=== PATIENT | female | born 1990 | race American Indian/Alaskan Native ===

== ENCOUNTER 2018-09-08 15:08 | Outpatient (CLI) | payer MEDICAID ==
[2018-09-08 15:28] VITALS: BP 107/62
[2018-09-08 15:45] LABS: Bilirubin,Urine NEG (Negative); Blood,Urine NEG (Negative); Color,Urine Yellow (Yellow); Mucus,Urine FEW /HPF; Protein,Urine <15 mg/dL mg/dL (Negative); Urobilinogen,Urine < 2.0 mg/dL (<2.0)
== END 2018-09-08 16:23 | disposition home or self-care (01) ==
LOC: TRG 15:08
PROVIDERS: ATTEND Obstetrics & Gynecology
DX: O47.03 False labor before 37 completed weeks of gestation, third trimester (principal); Z3A.37 37 weeks gestation of pregnancy
CPT/HCPCS: 59025; 81001

== ENCOUNTER 2018-09-12 15:27 | Inpatient (IN) | payer MEDICAID ==
[2018-09-12] MEDS ORDERED: LACTATED RINGERS 1,000 ML ONE (23:30)
[2018-09-12] MEDS ORDERED: LACTATED RINGERS 1,000 ML IV SCH (23:45)
[2018-09-13 00:05] LABS: Hematocrit 37.1 % (30.3-42.9); Hemoglobin 12.2 gm/dl (10.1-14.3); Mean Corpuscular HGB Conc 33 % (30-34); Mean Corpuscular Volume 86 fl (79-97); Platelet Count 269 K/mm3 (140-440); Red Blood Count 4.31 M/mm3 (3.65-5.03); Red Cell Distribution Width 18.6 % (13.2-15.2)
[2018-09-13] MEDS: ZOFRAN IV PRN ×3 (00:07→12:19)
[2018-09-13] MEDS: SUBLIMAZE IV PRN ×2 (00:13→04:41)
--- NOTE | 2018-09-13 06:27 | History and Physical Report ---
History of Present Illness Date of examination: 09/13/18 Date of admission: 09/12/18 23:03 Chief complaint: Contractions History of present illness: 28yo G 2 P 1 0 0 1 at 38 weeks 2 days here with c/o contractions that started yesterday. She reports +FMs, but denies VB or LOF. She is a [facility] patient who initiated care at 6 weeks gestation. Her course is complicated by morbid obesity, anemia and succenturiate placenta. Labs: B+, Antibody Screen neg, Pap Smear normal, RI, VDRL NR, HBsAg neg, HIV neg, MSAFP neg, Diabetes Screen 148, 3-hr GTT 75/162/126/109, GC/CT/Trich neg, GBS neg. Past History Past Medical History: other (vitamin D deficiency) Past Surgical History: other (wisdom teeth) AUDIT TECH History: other (condyloma) Family/Genetic History: cancer (breast, brain) Social history: single, lives with family, full code. denies: smoking, alcohol abuse, prescription drug abuse, IV drug use - Obstetrical History Expected Date of Delivery: 09/25/18 Actual Gestation: 38 Week(s) 2 Day(s) : 2 Para: 1 Hx # Term Pregnancies: 1 Number of Pregnancies: 0 Spontaneous Abortions: 0 Induced : 0 Number of Living Children: 1 #1 Infant Gender: Female year: (10/13/2012) Birthweight: 2.665 kg Method of Delivery: Vaginal Gestational age at delivery: 40 Complications: none Medications and Allergies Allergies Allergy/AdvReac Type Severity Reaction Status Date / Time No Known Allergies Allergy Verified 09/08/18 15:11 Active Meds: Active Medications Fentanyl (Sublimaze) 100 mcg IV Q2HR PRN PRN Reason: Labor Pain Last Admin: 09/13/18 04:41 Dose: 100 mcg Documented by: Lactated Ringer's (Lactated Ringers) 1,000 mls @ 125 mls/hr IV DIRECT JOSIAS Last Admin: 09/13/18 00:07 Dose: 125 mls/hr Documented by: Ondansetron HCl (Zofran) 4 mg IV Q8H PRN PRN Reason: Nausea And Vomiting Last Admin: 09/13/18 00:07 Dose: 4 mg Documented by: Review of Systems All systems: negative - Vital Signs Vital signs: Vital Signs Pulse Pulse Ox 70 100 09/12/18 15:36 09/12/18 15:36 Temp Pulse Resp BP Pulse Ox 98.1 F 64 18 107/68 97 09/12/18 17:30 09/13/18 06:11 09/12/18 17:30 09/13/18 06:11 09/13/18 01:29 - Physical Exam Abdomen: Positive: normal appearance Genitourinary (Female): Positive: normal external genitalia, normal perenium Vulva: both: normal Vagina: Positive: normal moisture Uterus: Positive: normal size, normal contour - Obstetrical FHR: auscultation normal, category 1 FHR comments: baseline 130, moderate variability, 15x15 accels, no decels Cervical Dilatation: 4 Cervical Effacement Percentage: 70 station: -1 Uterine Contraction Frequency (min): 4-7 Uterine Contraction Pattern: Regular Results Result Diagrams: 09/12/18 18:00 Abnormal lab results 09/12/18 Range/Units 18:00 RDW 18.6 H (13.2-15.2) % All other labs normal. Assessment and Plan - Patient Problems (1) 38 weeks gestation of Current Visit: Yes Status: Acute (2) Active labor at term Current Visit: Yes Status: Acute Plan to address problem: Admit to L&D with routine labor orders Start oxytocin for labor augmentation Anticipate vaginal delivery (3) Morbid obesity with BMI of 40.0-44.9, adult Current Visit: Yes Status: Acute
[2018-09-13] MEDS ORDERED: XYLOCAINE 2% INFILTRATI ONE (06:52)
[2018-09-13] MEDS ORDERED: BRETHINE SUB-Q PRN (06:52)
[2018-09-13] MEDS ORDERED: BRETHINE IVP PRN (06:52)
[2018-09-13] MEDS ORDERED: STADOL IV PRN (06:52)
[2018-09-13] MEDS ORDERED: MINERAL OIL PO PRN (06:52)
[2018-09-13] MEDS ORDERED: PITOCin/NS 30 UNIT/500ML 30 UNITS/500 ML BAG IV SCH (07:00)
[2018-09-13] MEDS ORDERED: LACTATED RINGERS 1,000 ML IV SCH (07:00)
[2018-09-13] MEDS ORDERED: PITOCin/NS 20 UNIT/1000ML DRIP 20 UNITS/1,000 ML BAG IV SCH (07:00)
--- NOTE | 2018-09-13 10:30 | Progress Note ---
Assessment and Plan - Patient Problems (1) 38 weeks gestation of Current Visit: Yes Status: Acute (2) Active labor at term Current Visit: Yes Status: Acute Plan to address problem: Continue routine labor orders Continue Pitocin augmentation as tolerated Epidural as desired Anticipate (3) Placenta succenturiata Current Visit: Yes Status: Acute Subjective - Subjective Date of service: 09/13/18 Principal diagnosis: 38 week gestation; labor augmentation Interval history: See admission H & P Patient reports: movement normal, contractions, no new complaints (Request epidural placement), no vaginal bleeding Objective - Vital Signs Vital Signs: Vital Signs - 12hr 09/12/18 09/12/18 09/12/18 23:17 23:22 23:27 Pulse Rate 80 79 76 Blood Pressure O2 Sat by Pulse 100 100 100 Oximetry 09/12/18 09/13/18 09/13/18 23:32 00:09 00:14 Pulse Rate 116 H 70 73 Blood Pressure O2 Sat by Pulse 100 99 97 Oximetry 09/13/18 09/13/18 09/13/18 00:15 00:19 00:21 Pulse Rate 81 75 77 Blood Pressure O2 Sat by Pulse 92 95 94 Oximetry 09/13/18 09/13/18 09/13/18 00:24 00:26 00:29 Pulse Rate 69 67 75 Blood Pressure O2 Sat by Pulse 95 94 95 Oximetry 09/13/18 09/13/18 09/13/18 00:34 00:39 00:44 Pulse Rate 59 L 55 L 65 Blood Pressure O2 Sat by Pulse 96 98 95 Oximetry 09/13/18 09/13/18 09/13/18 00:45 00:49 00:54 Pulse Rate 77 67 65 Blood Pressure O2 Sat by Pulse 94 95 96 Oximetry 09/13/18 09/13/18 09/13/18 00:59 01:02 01:04 Pulse Rate 63 77 59 L Blood Pressure O2 Sat by Pulse 96 94 97 Oximetry 09/13/18 09/13/18 09/13/18 01:09 01:10 01:14 Pulse Rate 56 L 69 68 Blood Pressure 101/61 O2 Sat by Pulse 95 94 96 Oximetry 09/13/18 09/13/18 09/13/18 01:19 01:24 01:29 Pulse Rate 79 72 61 Blood Pressure O2 Sat by Pulse 96 100 97 Oximetry 09/13/18 09/13/18 09/13/18 02:09 03:09 04:10 Pulse Rate 75 71 84 Blood Pressure 117/70 115/65 117/62 O2 Sat by Pulse Oximetry 09/13/18 09/13/18 09/13/18 05:10 06:11 07:10 Pulse Rate 69 64 67 Blood Pressure 105/62 107/68 108/71 O2 Sat by Pulse Oximetry 09/13/18 09/13/18 09/13/18 09:10 09:16 09:21 Pulse Rate 76 98 H 79 Blood Pressure 128/76 O2 Sat by Pulse 99 99 Oximetry 09/13/18 09/13/18 09/13/18 09:26 09:31 09:36 Pulse Rate 74 67 70 Blood Pressure O2 Sat by Pulse 100 100 98 Oximetry - Exam Breasts: deferred Cardiovascular: Regular rate Lungs: Normal air movement Abdomen: Present: other (gravid) Uterus: Present: other (S=D) FHR: category 1 Uterine Contraction Monitor Mode: External Cervical Dilatation: 5 (Pitocin @ 4mu/ml) Cervical Effacement Percentage: 70 station: -1 Uterine Contraction Pattern: Irregular Uterine Tone Measurement Phase: Resting Uterine Contraction Intensity: Moderate Extremities: normal Deep Tendon Reflex Grade: Normal +2 - Labs Labs: Abnormal Labs 09/12/18 18:00 RDW 18.6 H Laboratory Results - last 24 hr 09/12/18 09/12/18 18:00 18:00 WBC 9.6 RBC 4.31 Hgb 12.2 Hct 37.1 MCV 86 MCH 28 MCHC 33 RDW 18.6 H Plt Count 269 Blood Type B POSITIVE Antibody Screen Negative
[2018-09-13] MEDS ORDERED: NARCAN 2 MG/2 ML IV PRN (11:10)
--- NOTE | 2018-09-13 11:13 | Anesthesia Consultation ---
Anesthesia Consult and Med Hx Date of service: 09/13/18 - Airway Anesthetic Teeth Evaluation: Good ROM Head & Neck: Adequate Mental/Hyoid Distance: Adequate Mallampati Class: Class II Intubation Access Assessment: Probably Good - Pulmonary Exam CTA: Yes - Cardiac Exam Cardiac Exam: RRR - Pre-Operative Health Status ASA Pre-Surgery Classification: ASA2 Proposed Anesthetic Plan: Epidural - Pulmonary Hx Smoking: No Hx Asthma: No Hx Respiratory Symptoms: No SOB: No COPD: No Hx Pneumonia: No Hx Sleep Apnea: No - Cardiovascular System Hx Hypertension: No Hx Coronary Artery Disease: No Hx Heart Attack/AMI: No Hx Angina: No Hx Percutaneous Transluminal Coronary Angioplasty (PTCA): No Hx Cardia Arrhythmia: No Hx Pacemaker: No Hx Internal Defibrillator: No Hx Valvular Heart Disease: No Hx Heart Murmur: No Hx Peripheral Vascular Disease: No - Central Nervous System Hx Neuromuscular Disorder: No Hx Seizures: No CVA: No Hx Back Pain: No Hx Psychiatric Problems: No - Gastrointestinal Hx Ulcer: No Hx Gastroesophageal Reflux Disease: No - Endocrine Hx Renal Disease: No Hx End Stage Renal Disease: No Hx Cirrhosis: No Hx Liver Disease: No Hx Insulin Dependent Diabetes: No Hx Non-Insulin Dependent Diabetes: No Hx Thyroid Disease: No Hx Hypothyroidism: No Hx Hyperthyroidism: No - Hematic Hx Anemia: No Hx Sickle Cell Disease: No - Other Systems Hx Alcohol Use: No Hx Substance Use: No Hx Cancer: No Hx Obesity: Yes (BMI 44.6)
--- NOTE | 2018-09-13 11:41 | Ultrasound Report ---
ULTRASOUND OB LIMITED HISTORY: Evaluate presentation. TECHNIQUE: Transabdominal ultrasound images. FINDINGS: A single intrauterine is identified in cephalic position. heart rate measur es 127 bpm. IMPRESSION: Cephalic presentation. Signer Name: John Weldon Jr, MD Signed: 09/13/2018 11:36 AM Workstation Name: [id number]
[2018-09-13] MEDS ORDERED: fentaNYL-BUPIV 2 MCG/ML-0.125% 200 MCG/100 ML BAG EPIDURAL SCH (12:00)
--- NOTE | 2018-09-13 14:51 | Progress Note ---
Assessment and Plan - Patient Problems (1) 38 weeks gestation of Current Visit: Yes Status: Acute (2) Active labor at term Current Visit: Yes Status: Acute Plan to address problem: Continue routine labor orders Continue Pitocin augmentation as tolerated Anticipate (3) Placenta succenturiata Current Visit: Yes Status: Acute Subjective - Subjective Date of service: 09/13/18 Principal diagnosis: 38 week gestation; labor augmentation Interval history: See admission H & P Patient reports: new complaints (Reports some pressure, but comfortable for the most part), loss of fluid (meconium stained), movement normal, contractions, no vaginal bleeding Objective - Vital Signs Vital Signs: Vital Signs - 12hr 09/13/18 09/13/18 09/13/18 03:09 04:10 05:10 Temperature Pulse Rate 71 84 69 Respiratory Rate Blood Pressure 115/65 117/62 105/62 O2 Sat by Pulse Oximetry 09/13/18 09/13/18 09/13/18 06:11 07:10 09:10 Temperature Pulse Rate 64 67 76 Respiratory Rate Blood Pressure 107/68 108/71 128/76 O2 Sat by Pulse Oximetry 09/13/18 09/13/18 09/13/18 09:16 09:21 09:26 Temperature Pulse Rate 98 H 79 74 Respiratory Rate Blood Pressure O2 Sat by Pulse 99 99 100 Oximetry 09/13/18 09/13/18 09/13/18 09:31 09:36 10:34 Temperature Pulse Rate 67 70 Respiratory Rate Blood Pressure O2 Sat by Pulse 100 98 100 Oximetry 09/13/18 09/13/18 09/13/18 10:35 10:39 10:42 Temperature Pulse Rate 92 H 98 H 117 H Respiratory Rate Blood Pressure 131/74 O2 Sat by Pulse 100 54 L Oximetry 09/13/18 09/13/18 09/13/18 10:45 10:54 10:55 Temperature Pulse Rate 101 H 100 H 87 Respiratory Rate Blood Pressure 135/71 O2 Sat by Pulse 100 60 L Oximetry 09/13/18 09/13/18 09/13/18 10:57 11:01 11:03 Temperature Pulse Rate 96 H 81 71 Respiratory Rate Blood Pressure 168/86 110/62 O2 Sat by Pulse 96 Oximetry 09/13/18 09/13/18 09/13/18 11:06 11:08 11:11 Temperature Pulse Rate 72 92 H 78 Respiratory Rate Blood Pressure 107/59 O2 Sat by Pulse 98 93 98 Oximetry 09/13/18 09/13/18 09/13/18 11:13 11:14 11:16 Temperature Pulse Rate 85 78 76 Respiratory Rate Blood Pressure 105/54 O2 Sat by Pulse 89 100 Oximetry 09/13/18 09/13/18 09/13/18 11:18 11:21 11:26 Temperature Pulse Rate 78 75 75 Respiratory Rate Blood Pressure 103/54 O2 Sat by Pulse 100 100 Oximetry 09/13/18 09/13/18 09/13/18 11:31 11:33 11:34 Temperature Pulse Rate 75 71 73 Respiratory Rate Blood Pressure 98/55 O2 Sat by Pulse 99 93 Oximetry 09/13/18 09/13/18 09/13/18 11:36 11:41 11:46 Temperature Pulse Rate 72 75 83 Respiratory Rate Blood Pressure O2 Sat by Pulse 100 98 100 Oximetry 09/13/18 09/13/18 09/13/18 11:48 11:50 11:51 Temperature 98.1 F Pulse Rate 80 91 H Respiratory 16 Rate Blood Pressure 102/60 O2 Sat by Pulse 97 Oximetry 09/13/18 09/13/18 09/13/18 11:52 11:56 12:01 Temperature Pulse Rate 90 103 H 101 H Respiratory Rate Blood Pressure O2 Sat by Pulse 94 99 100 Oximetry 09/13/18 09/13/18 09/13/18 12:06 12:14 12:19 Temperature Pulse Rate 118 H 85 75 Respiratory Rate Blood Pressure 128/59 109/60 O2 Sat by Pulse 100 Oximetry 09/13/18 09/13/18 09/13/18 12:33 12:49 13:04 Temperature Pulse Rate 68 71 64 Respiratory Rate Blood Pressure 115/55 116/48 99/52 O2 Sat by Pulse Oximetry 09/13/18 09/13/18 09/13/18 13:20 13:49 14:03 Temperature Pulse Rate 109 H 107 H 96 H Respiratory Rate Blood Pressure 134/58 113/74 112/58 O2 Sat by Pulse Oximetry 09/13/18 09/13/18 09/13/18 14:19 14:23 14:28 Temperature Pulse Rate 117 H 117 H 104 H Respiratory Rate Blood Pressure 111/71 O2 Sat by Pulse 100 100 Oximetry 09/13/18 09/13/18 09/13/18 14:33 14:38 14:43 Temperature Pulse Rate 85 104 H 87 Respiratory Rate Blood Pressure 115/70 O2 Sat by Pulse 99 99 100 Oximetry - Exam Breasts: deferred Cardiovascular: Regular rate Lungs: Normal air movement FHR: category 1 (with early decels noted) Uterine Contraction Monitor Mode: External Cervical Dilatation: 9 (Pitocin @ 8mu/ml) Cervical Effacement Percentage: 90 station: +1 Uterine Contraction Frequency (min): 2-3 Uterine Contraction Pattern: Regular Uterine Tone Measurement Phase: Resting Uterine Contraction Intensity: Strong/Firm - Labs Labs: Abnormal Labs 09/12/18 18:00 RDW 18.6 H Laboratory Results - last 24 hr 09/12/18 09/12/18 09/12/18 18:00 18:00 18:00 WBC 9.6 RBC 4.31 Hgb 12.2 Hct 37.1 MCV 86 MCH 28 MCHC 33 RDW 18.6 H Plt Count 269 RPR Nonreactive Blood Type B POSITIVE Antibody Screen Negative
[2018-09-13] MEDS ORDERED: MARCAINE 0.25% INFILTRATI ONE (15:55)
[2018-09-13] MEDS ORDERED: XYLOCAINE MPF 2% ONE (16:09)
[2018-09-13] MEDS ORDERED: PERCOCET 5/325 ONE (20:20)
[2018-09-13] MEDS ORDERED: PERCOCET 5/325 PO PRN ×2 (20:23→21:02)
[2018-09-13] MEDS ORDERED: PHENERGAN PO PRN (21:02)
[2018-09-13] MEDS ORDERED: BENADRYL PO PRN (21:02)
[2018-09-13] MEDS ORDERED: LANSINOH TP PRN (21:02)
[2018-09-13] MEDS ORDERED: TUCKS PAD TP PRN (21:02)
[2018-09-13] MEDS ORDERED: ZOFRAN IV PRN (21:02)
[2018-09-13] MEDS ORDERED: DULCOLAX PR PRN (21:02)
[2018-09-13] MEDS ORDERED: MILK OF MAGNESIA PO PRN (21:02)
--- NOTE | 2018-09-13 21:18 | Procedure Note ---
OB Delivery Note - Delivery Date of Delivery: 09/13/18 (1999) Surgeon: LOU MCCAULEY (CNM) Estimated blood loss: other (250cc) - Vaginal Delivery presentation: vertex Delivery position: OA (direct with compound hand) Intrapartum events: meconium Delivery induction: none Delivery augmentation: pitocin Delivery monitor: external FHT, external uterine Route of delivery: Delivery placenta: spontaneous (2003) Delivery cord: 3 umbilical vessels Episiotomy: none Delivery laceration: none Anesthesia: epidural Delivery comments: of viable, meconium stained male , not crying with poor tone. Cord immediately double clamped and cut and handed over to awaiting NICU team whom is at bedside for delivery. Placenta spontaneously delivered, nino, disposed per hospital policy. Fundus firm @ U, hemostasis maintained. Perineum intact. Baby assessed and cleared by NICU team and returned to mother. Mother and baby safe, stable and bonding well. - Infant A at 1 minute: 7 at 5 minutes: 8 Gender: Male (Weight: 3225 gms (7 lbs 2 ozs), 18.5 inches)
[2018-09-13] MEDS ORDERED: SODIUM CHLORIDE FLUSH SYRINGE 10 ML IV NR (22:00)
[2018-09-13] MEDS: IBUPROFEN PO SCH (23:52)
[2018-09-14] MEDS: IBUPROFEN PO SCH ×4 (05:49→21:45)
[2018-09-14 09:35] LABS: Hemoglobin 9.9 gm/dl (10.1-14.3)
[2018-09-14 09:44] LABS: Hematocrit 31.1 % (30.3-42.9)
[2018-09-14] MEDS: PRENATAL VITAMIN PO SCH (10:01)
--- NOTE | 2018-09-14 10:10 | Progress Note ---
Assessment and Plan A: PP Day #1 Asymptomatic Anemia Left Leg Numb P: Follow Routine Orders FeSO4 325mg PO BID Subjective - Subjective Date of service: 09/14/18 Principal diagnosis: 38 week gestation; labor augmentation Patient reports: appetite normal, voiding normally, other (left leg still numb from epidural; using wheelchair) [place]: doing well, bottle feeding Objective - Vital Signs Latest vital signs: Vital Signs Temp Pulse Resp BP BP Pulse Ox 09/14/18 05:49 20 09/14/18 04:00 98.4 F 64 16 99/72 09/14/18 00:30 98.6 F 69 19 104/72 09/13/18 23:52 18 09/13/18 22:55 98 F 77 18 113/63 100 09/13/18 21:51 20 09/13/18 21:33 88 109/64 09/13/18 21:27 93 H 85 09/13/18 21:22 93 H 100 09/13/18 21:18 98 H 111/69 09/13/18 21:17 98 H 100 09/13/18 21:12 96 H 100 09/13/18 21:07 100 H 100 09/13/18 21:03 104 H 111/67 09/13/18 21:02 104 H 100 09/13/18 20:57 109 H 100 09/13/18 20:54 38 L 89 09/13/18 20:52 109 H 100 09/13/18 20:48 108 H 114/57 09/13/18 20:47 111 H 100 09/13/18 20:42 115 H 100 09/13/18 20:37 114 H 100 09/13/18 20:35 94 H 20 117/56 09/13/18 20:33 110 H 117/56 94 09/13/18 20:32 115 H 96 09/13/18 20:27 118 H 95 09/13/18 20:22 116 H 100 09/13/18 20:20 113 H 20 119/57 09/13/18 20:18 113 H 119/57 09/13/18 20:17 120 H 100 09/13/18 20:12 124 H 100 09/13/18 20:07 122 H 118/70 100 09/13/18 20:05 98.0 F 122 H 20 121/65 09/13/18 20:03 122 H 121/65 07/30/19 19:58 45 L 82 L 09/13/18 19:53 54 L 56 L 09/13/18 19:48 64 59 L 09/13/18 19:43 77 78 L 09/13/18 17:48 108 H 125/66 09/13/18 17:41 99.0 F 09/13/18 17:34 93 H 120/90 09/13/18 17:18 88 118/74 09/13/18 17:03 79 94/52 09/13/18 16:49 96 H 102/54 09/13/18 16:33 94 H 93/54 09/13/18 16:18 101 H 99/50 09/13/18 16:04 117 H 101/59 09/13/18 16:00 97.9 F 16 09/13/18 15:48 115/65 09/13/18 15:33 113 H 114/66 09/13/18 15:18 144 H 117/69 09/13/18 15:03 109 H 121/74 100 09/13/18 14:58 104 H 100 09/13/18 14:53 97 H 99 09/13/18 14:48 103 H 117/72 99 09/13/18 14:43 87 100 09/13/18 14:38 104 H 99 09/13/18 14:33 85 115/70 99 09/13/18 14:28 104 H 100 09/13/18 14:23 117 H 100 09/13/18 14:19 117 H 111/71 09/13/18 14:03 96 H 112/58 09/13/18 13:49 107 H 113/74 09/13/18 13:20 109 H 134/58 09/13/18 13:04 64 99/52 09/13/18 12:49 71 116/48 09/13/18 12:33 68 115/55 09/13/18 12:19 75 109/60 09/13/18 12:14 85 128/59 09/13/18 12:06 118 H 100 09/13/18 12:01 101 H 100 09/13/18 11:56 103 H 99 09/13/18 11:52 90 94 09/13/18 11:51 91 H 97 09/13/18 11:50 98.1 F 16 09/13/18 11:48 80 102/60 09/13/18 11:46 83 100 09/13/18 11:41 75 98 09/13/18 11:36 72 100 09/13/18 11:34 73 93 09/13/18 11:33 71 98/55 09/13/18 11:31 75 99 09/13/18 11:26 75 100 09/13/18 11:21 75 100 09/13/18 11:18 78 103/54 09/13/18 11:16 76 100 09/13/18 11:14 78 105/54 09/13/18 11:13 85 89 09/13/18 11:11 78 107/59 98 09/13/18 11:08 92 H 93 09/13/18 11:06 72 98 09/13/18 11:03 71 110/62 09/13/18 11:01 81 96 09/13/18 10:57 96 H 168/86 09/13/18 10:55 87 60 L 09/13/18 10:54 100 H 135/71 09/13/18 10:45 101 H 100 09/13/18 10:42 117 H 54 L 09/13/18 10:39 98 H 100 09/13/18 10:35 92 H 131/74 09/13/18 10:34 100 Intake and Output 09/13/18 09/14/18 09/14/18 22:59 06:59 14:59 Intake Total 240 Output Total 1150 1300 Balance -910 -1300 Intake: Oral 240 Output: Urine 1150 1300 Indwelling Catheter 1150 Void 1300 Other: Total, Intake Amount 240 Total, Output Amount 800 600 # Voids Void 1 Estimated Blood Loss 250 - Exam Breasts: Present: normal Cardiovascular: Present: Regular rate Lungs: Present: Clear to auscultation, Normal air movement Abdomen: Present: normal appearance, soft, normal bowel sounds Uterus: Present: normal, firm, fundal height below umbilicus Extremities: Present: other (left leg numb) - Labs Labs: Abnormal lab results 09/14/18 Range/Units 09:19 Hgb 9.9 L (10.1-14.3) gm/dl
[2018-09-14] MEDS: FEOSOL PO SCH ×2 (11:00→21:45)
--- NOTE | 2018-09-14 19:29 | Progress Note ---
Subjective Date of service: 09/14/18 Principal diagnosis: 38 week gestation; labor augmentation Interval history: Called to evaluate patient for left leg numbness/weakness s/p epidural for . Patient reports epidural worked on R side better than left side. Recalls left leg hurting/cramping while in stirrups and pushing. Patient denies signs and symptoms of infections (fever, chills, nausea). No fever noted on vital signs. No redness, drainage, erythema, or pain at site of epidural insertion. Neuro exam: straight leg raise 5/5 on R 4/5 on L. Lower leg push/pull 5/5 bilat. Foot dorsi/plantar flexion 5/5 on R 4/5 on L. Numbness only present on L medial foot. States that numbness has improved substantially since starting to ambulate with assistance. Discussed unlikely chance of infection, will do CT for epidural hematoma although also unlikely, and most likely cause is nerve compression from lithotomy position. This will continue to improve with use of the extremety. Patient verbalizes understanding and agreement with plan. Objective - Constitutional Vitals: Vital Signs - 12hr 09/14/18 09:59 Temperature 98.4 F Pulse Rate 74 Respiratory 16 Rate Blood Pressure 102/48 O2 Sat by Pulse 99 Oximetry - Labs CBC & Chem 7: 09/14/18 09:19 Labs: Abnormal lab results 09/14/18 Range/Units 09:19 Hgb 9.9 L (10.1-14.3) gm/dl
[2018-09-15] MEDS: IBUPROFEN PO SCH ×3 (03:46→18:25)
[2018-09-15] MEDS ORDERED: BOOSTRIX IM ONE (06:00)
[2018-09-15] MEDS: PRENATAL VITAMIN PO SCH (10:00)
[2018-09-15] MEDS: FEOSOL PO SCH (10:00)
--- NOTE | 2018-09-15 10:26 | Progress Note ---
Subjective Date of service: 09/15/18 Principal diagnosis: 38 week gestation; labor augmentation Interval history: Patient with continued improvement today. Numbness now only on ankle. Able to ambulate without assistance. Patient states she wishes to have CT scan before d/c, which is reasonable. Instructed patient on ambulating safely to prevent falls. Objective - Constitutional Vitals: Vital Signs - 12hr 09/14/18 09/15/18 09/15/18 22:45 00:32 03:46 Temperature 98.7 F Pulse Rate 71 Respiratory 18 18 18 Rate Blood Pressure 100/61 O2 Sat by Pulse 100 Oximetry 09/15/18 09/15/18 04:46 08:17 Temperature 98.9 F Pulse Rate 72 Respiratory 18 18 Rate Blood Pressure 106/64 O2 Sat by Pulse 97 Oximetry - Labs CBC & Chem 7: 09/14/18 09:19
--- NOTE | 2018-09-15 10:54 | Progress Note ---
Assessment and Plan A: PPD#2 s/p Asymptomatic Anemia Left lower Leg Numb (Pending scan; getting better) Eating drinking and ambulating without difficulty P: Follow Routine Orders FeSO4 325mg PO BID Awaiting scan Pt desires discharge home today pending scan Subjective - Subjective Date of service: 09/15/18 Principal diagnosis: PPD#2 s/p 09/13 Interval history: See H&P and delivery note Patient reports: appetite normal, voiding normally, pain well controlled, flatus, ambulating normally, no bowel movement [place]: doing well, bottle feeding Objective - Vital Signs Latest vital signs: Vital Signs Temp Pulse Resp BP Pulse Ox 09/15/18 08:17 98.9 F 72 18 106/64 97 09/15/18 04:46 18 09/15/18 03:46 18 09/15/18 00:32 98.7 F 71 18 100/61 100 09/14/18 22:45 18 09/14/18 21:45 18 09/14/18 16:25 98.6 F 79 16 115/66 98 09/14/18 13:04 98.5 F 87 16 90/44 99 Intake and Output 09/14/18 09/15/18 09/15/18 23:59 07:59 15:59 Intake Total 480 Balance 480 Intake: Intake, Free Water 480 Other: # Voids Void 1 - Exam Breasts: Present: normal Cardiovascular: Present: Regular rate, Normal S1, Normal S2, No murmurs Lungs: Present: Clear to auscultation, Normal air movement Abdomen: Present: normal appearance, soft, normal bowel sounds. Absent: distention Vulva: both: normal Uterus: Present: firm, fundal height at umbilicus Extremities: Present: other (Pt reports numbness to left lower leg and inability to dorsoflex left foot)
--- NOTE | 2018-09-15 16:56 | Cat Scan Report ---
CT lumbar without contrast. Clinical history: Left leg weakness FINDINGS: No previous exams available for comparison. There is mild curvature of the lumbar spine, co nvex toward the right. There is no significant spondylolisthesis at. The visualized vertebral bodies demonstrate appropriate height without CT evidence of acute compression or fracture. The disc bulge at L4-L5 appears greater on the left with slight flattening of the left ventral thecal sac at. There also appears be mild neural foraminal narrowing bilaterally. The remaining lumbar disc spaces appear fairly well-maintained without CT evidence of significant bony spinal stenosis. No foc al lytic lesions are appreciated. There are mild arthritic changes involving the visualized SI joints of bilaterally. All CT scans at this location are performed using the CT dose reduction for MyEdu by means of automated exposure control. IMPRESSION: There is no CT evidence of acute fracture involving the cervical spine. The disc bulge at L4-5 appears to slightly flatten the left ventral thecal sac. There is mild neural foraminal narrowing bilaterally. Signer Name: Ladarius Ambriz MD Signed: 09/15/2018 4:52 PM Workstation Name: [id number]
--- NOTE | 2018-09-15 18:23 | Progress Note ---
Subjective Date of service: 09/15/18 Principal diagnosis: PPD#2 s/p 09/13 Interval history: Reviewed results of CT, pt ok for discharge to f/u with family doctor to monitor resolution of symptoms or if herniated disc worsens and starts causing symptoms. Objective - Constitutional Vitals: Vital Signs - 12hr 09/15/18 08:17 Temperature 98.9 F Pulse Rate 72 Respiratory 18 Rate Blood Pressure 106/64 O2 Sat by Pulse 97 Oximetry - Labs CBC & Chem 7: 09/14/18 09:19
[2018-09-15 20:44] VITALS: BP 109/58
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
== END 2018-09-15 20:20 | disposition home or self-care (01) | DRG 775 ==
LOC: TRG 15:27 → LD 23:03 → OB 09-13 22:28
PROVIDERS: ADMIT Obstetrics & Gynecology; ATTEND Obstetrics & Gynecology
PROC: 10E0XZZ Delivery of Products of Conception, External Approach (ICD-10-PCS; principal; 2018-09-13)
PROC: 3E0R3BZ Introduction of Anesthetic Agent into Spinal Canal, Percutaneous Approach (ICD-10-PCS; 2018-09-13)
PROC: 00HU33Z Insertion of Infusion Device into Spinal Canal, Percutaneous Approach (ICD-10-PCS; 2018-09-13)
PROC: 3E0234Z Introduction of Serum, Toxoid and Vaccine into Muscle, Percutaneous Approach (ICD-10-PCS; 2018-09-15)
DX: O77.0 Labor and delivery complicated by meconium in amniotic fluid (principal); O99.214 Obesity complicating childbirth; O43.193 Other malformation of placenta, third trimester; O99.02 Anemia complicating childbirth; D64.9 Anemia, unspecified; Z37.0 Single live birth; Z3A.38 38 weeks gestation of pregnancy; E66.01 Morbid (severe) obesity due to excess calories; Z23 Encounter for immunization
CPT/HCPCS: 36415; 72131; 76815; 85014; 85018; 85027; 86592; 86850; 86900; 86901; 90471; 90715; G0378; A6250; J2405; J2590; J3010; J7120